=== PATIENT | female | born 2000 | race Caucasian/White ===

== ENCOUNTER 2022-10-03 21:32 | Emergency (ER) | payer OTHER, SELFPAY ==
[2022-10-03 21:44] VITALS: BP 142/108; PULSE 93; RESP 16; TEMP 36.6; O2SAT 99
--- NOTE | 2022-10-03 22:15 | CRLHL7_ITS ---
For Patients: As a result of the Century Cures Act, medical imaging exams and procedure reports are released immediately into your electronic medical record. You may view this report before your referring provider. If you have questions, please contact your health care provider. INDICATION: Low anterior mid chest pain TECHNIQUE: Chest radiograph 1 view COMPARISON: None FINDINGS: The sensitivity and specificity of the exam are moderately limited by the patient`s body habitus. Mediastinum: The mediastinum is normal in appearance. The heart silhouette is normal in size and morphology. Lung: Both lungs are unremarkable in appearance. No sign of pleural effusion seen. No pneumothorax is identified. Bone and Soft tissue: Unremarkable for age. IMPRESSION: 1. No acute cardiopulmonary disease is seen. Dictated by: Javan Llanes MD @ 10/03/2022 23:23:03 (Electronically Signed)
[2022-10-03 22:35] LABS: Basophils Absolute Auto 0.03 K/uL (0.00-0.30); Basophils Percent Auto 0.3 % (0.0-3.0); Eosinophils Absolute Auto 0.08 K/uL (0.00-0.50); Eosinophils Percent Auto 0.7 % (0.0-7.0); Hematocrit 43.1 % (33.0-51.0); Hemoglobin* 14.3 gm/dL (12.0-16.0); Immature Granulocytes Abs Auto 0.03 K/uL (0.00-0.30); Immature Granulocytes Pct Auto 0.3 %; Lymphocytes Absolute Auto 2.51 K/uL (0.90-2.90); Lymphocytes Percent Auto 22.8 % (20-44); Mean Corpuscular HGB Conc 33 gm/dL (32-36); Mean Corpuscular Hemoglobin 30 pg (26-34); Mean Corpuscular Volume 91 fL (80-100); Monocytes Percent Auto 5.8 % (0.0-11.0); Neutrophils Absolute Auto 7.71 K/uL (1.7-7.0); Neutrophils Percent Auto 70.1 % (42.0-72.0); Platelet Count* 262 K/uL (140-440); RDW Coefficient of Variation % 13.2 % (11.5-15.5); Red Blood Count 4.76 m/uL (4.00-5.20)
[2022-10-03 22:39] LABS: Slide Review Reflex No
[2022-10-03 22:51] LABS: Chloride* 109 mmol/L (96-114)
[2022-10-03 22:52] LABS: Albumin* 4.7 g/dL (3.3-5.0); Sodium* 141 mmol/L (135-149)
[2022-10-03 22:54] LABS: Creatinine* 0.6 mg/dL (0.5-1.5); Estimated Glomerular Filt Rate 129 ml/min
[2022-10-03 22:55] LABS: Alanine Aminotransferase* 25 U/L (4-35); Alkaline Phosphatase* 107 U/L (40-150); Aspartate Amino Transferase* 22 U/L (12-35); Bilirubin Direct* 0.2 mg/dL (0.0-0.5); Bilirubin Total* 0.5 mg/dL (0.1-1.5); Blood Urea Nitrogen* 13 mg/dL (5-24); Carbon Dioxide* 22 mmol/L (20-32); Glucose* 86 mg/dL (60-115); Lipase* 77 U/L (23-300); Total Protein* 8.6 g/dL (6.0-8.3)
[2022-10-03 22:56] LABS: Calcium* 9.6 mg/dL (8.4-10.6)
[2022-10-03 22:58] LABS: C Reactive Protein* 0.6 mg/dL (0.5-1.0)
[2022-10-03 23:02] LABS: D Dimer Quantitative* < 0.27 ug/ml (0.00-0.50)
[2022-10-03 23:11] LABS: NT Pro B Type NatriureticPept* < 20 pg/mL; Troponin I* < 0.01 ng/mL (0.01-0.04)
--- NOTE | 2022-10-03 23:32 | ED.CHESTPAIN ---
HPI - Chest Pain General Chief Complaint: Chest Pain Stated Complaint: Chest pain Time Seen by Provider: 10/03/22 21:44 History of Present Illness HPI narrative: 22-year-old young woman presenting to the emergency department complaint of onset of low chest discomfort starting around 36 hours ago in the morning. No trauma. No cough or cold symptoms. Minimal nausea. No treatments. Mildly pleuritic. Seems to feel it straight through to her back. No numbness or tingling into extremities. No weakness. Not lightheaded or dizzy. No palpitations. No fever. No rashes. Related Data Allergies Allergy/AdvReac Type Severity Reaction Status Date / Time azithromycin Allergy Verified 10/03/22 21:50 Review of Systems Status of ROS Reports: 10 or more systems reviewed and unremarkable except as noted in History and below [facility] Social History Smoking Status: Never smoker Do you use any of these nicotine containing products: Vaping Products How often do you have a drink containing alcohol: monthly or less AUDIT-C Alcohol total score: 1 Non-prescribed substance use: denies use service: No Exam Narrative Exam Narrative: Pleasant. NAD. Breathing easily. Skin is warm and dry. No evidence of rash. Lungs are clear. There is no supraclavicular crepitus. Cranial nerves 2-12 look to be intact. Heart with elevated rate in a regular rhythm. She is mildly sore to palpation in the low sternum/xiphoid area. Abdomen is soft nontender otherwise. Back pain is not really reproducible. Well-perfused peripherally. Moving all extremities without difficulty. Const Vital Signs, click to edit/add: Vital Signs - 24 hr 10/03/22 21:44 Temperature 97.9 F Pulse Rate [Left Pulse Oximeter] 93 Respiratory Rate 16 Blood Pressure [Right Upper Arm] 142/108 H Pulse Oximetry 99 Oxygen Delivery Method Room Air Documenting provider has reviewed patient's vital signs: yes Course Vital Signs Vital signs: Initial Vital Signs Temperature 97.9 F 10/03/22 21:44 Temperature Source Temporal Artery Scan 10/03/22 21:44 Pulse Rate 93 10/03/22 21:44 Pulse Rhythm 10/03/22 21:44 Respiratory Rate 16 10/03/22 21:44 Blood Pressure 142/108 H 10/03/22 21:44 Blood Pressure Mean 119 10/03/22 21:44 Blood Pressure Position Sitting 10/03/22 21:44 Pulse Oximetry 99 10/03/22 21:44 Oxygen Delivery Method 10/03/22 21:44 Vital Signs Temperature 97.9 F 10/03/22 21:44 Pulse Rate 93 10/03/22 21:44 Respiratory Rate 16 10/03/22 21:44 Blood Pressure 142/108 H 10/03/22 21:44 Pulse Oximetry 99 10/03/22 21:44 Oxygen Delivery Method 10/03/22 21:44 Temperature 97.9 F 10/03/22 21:44 Pulse Rate 93 10/03/22 21:44 Respiratory Rate 16 10/03/22 21:44 Blood Pressure 142/108 H 10/03/22 21:44 Pulse Oximetry 99 10/03/22 21:44 Oxygen Delivery Method 10/03/22 21:44 MDM - Chest Pain MDM Narrative Medical decision making narrative: Does not feel she needs treatment for pain or nausea. This appears to be chest wall pain but certainly differential can still include pulmonary embolus, pneumothorax, pneumomediastinum, low-lying pneumonia, vascular disruption, costochondritis, chest wall pain. Will be doing screening labs. Chest x-ray reviewed by me looks to be WNL. Normal cardiac silhouette. No airspace disease. No pneumothorax or pneumomediastinum. D-dimer was negative. Appears to be chest wall pain See patient discharge information Lab Data Attestation: I reviewed the patient's lab results. Labs: Lab Results 10/03/22 10/03/22 10/03/22 Range/Units 22:28 22:28 22:28 WBC 11.00 (4.50-11.00) K/uL RBC 4.76 (4.00-5.20) m/uL Hgb 14.3 (12.0-16.0) gm/dL Hct 43.1 (33.0-51.0) % MCV 91 (80-100) fL MCH 30 (26-34) pg MCHC 33 (32-36) gm/dL RDW Coeff of [place] 13.2 (11.5-15.5) % Plt Count 262 (140-440) K/uL Neut % (Auto) 70.1 (42.0-72.0) % Lymph % (Auto) 22.8 (20-44) % Gibson % (Auto) 5.8 (0.0-11.0) % Eos % (Auto) 0.7 (0.0-7.0) % Baso % (Auto) 0.3 (0.0-3.0) % Neut # (Auto) 7.71 H (1.7-7.0) K/uL Lymph # (Auto) 2.51 (0.90-2.90) K/uL Gibson # (Auto) 0.60 (0.00-0.90) K/UL Eos # (Auto) 0.08 (0.00-0.50) K/uL Baso # (Auto) 0.03 (0.00-0.30) K/uL D-Dimer Quant (PE/DVT) < 0.27 (0.00-0.50) ug/ml Sodium 141 (135-149) mmol/L Potassium 4.0 (3.6-5.1) mmol/L Chloride 109 (96-114) mmol/L Carbon Dioxide 22 (20-32) mmol/L BUN 13 (5-24) mg/dL Creatinine 0.6 (0.5-1.5) mg/dL Estimated GFR 129 ml/min Glucose 86 (60-115) mg/dL Calcium 9.6 (8.4-10.6) mg/dL Total Bilirubin 0.5 (0.1-1.5) mg/dL Direct Bilirubin 0.2 (0.0-0.5) mg/dL AST 22 (12-35) U/L ALT 25 (4-35) U/L Alkaline Phosphatase 107 (40-150) U/L Troponin I < 0.01 L (0.01-0.04) ng/mL C-Reactive Protein 0.6 (0.5-1.0) mg/dL NT-Pro-B Natriuret Pep < 20 pg/mL Total Protein 8.6 H (6.0-8.3) g/dL Albumin 4.7 (3.3-5.0) g/dL Lipase 77 (23-300) U/L ECG Data Attestation: I personally reviewed and interpreted this ECG as follows: (Normal sinus rhythm rate of 89) Discharge Plan Discharge Clinical Impression: Chest wall pain Patient Disposition: Home, Self-Care Condition: Stable Additional Instructions: Stay hydrated. Consider taking maybe 600 mg of ibuprofen 2-3 times daily over the next 4-5 days. Alternative would be up to 500 mg of naproxen 2 times daily over the same time period. Might want to take either 1 of these with a little bit of food. This would hopefully settle down some inflammation. You might do the stretches/strengthening exercises on the handout long-term just to balance the torso. Strong back can alleviate chest discomfort as well. Return for increasing/uncontrolled chest pain, increasing shortness of breath, lightheadedness. Follow Up/Referrals: Laina Odom MD [Primary Care Provider] - Stand Alone Forms: [employer] Info Instructions
== END 2022-10-03 23:24 | disposition home or self-care (01) ==
PROVIDERS: Emergency Provider Family Medicine; PCP Family Medicine
DX: R07.89 Other chest pain (principal)
CPT/HCPCS: 36415; 71045; 80048; 80076; 83690; 83880; 84484; 85025; 85379; 86140; 99284

== ENCOUNTER 2023-04-02 11:22 | Emergency (ER) | payer OTHER, SELFPAY ==
[2023-04-02 11:29] VITALS: BP 123/81; RESP 16; TEMP 36.6; O2SAT 99; BMI 29.2
--- NOTE | 2023-04-02 11:47 | CRLHL7_ITS ---
For Patients: As a result of the Century Cures Act, medical imaging exams and procedure reports are released immediately into your electronic medical record. You may view this report before your referring provider. If you have questions, please contact your health care provider. INDICATION: Left lower quadrant pain TECHNIQUE: Ultrasound pelvis transabdominal and transvaginal for better assessment or to better visualize the endometrium. Real-time sonographic images with spectral and color Doppler imaging of the ovaries were obtained. COMPARISON: None FINDINGS: Uterus: 8.2 x 5.4 x 5.5 cm. Heterogeneous echotexture of the uterus. Anterior intramural fibroid measuring 1.8 x 1.7 x 1.5 centimeters. Left intramural fibroid measuring 2.4 x 1.8 x 1.7 centimeters. Endometrium: Endometrial thickness measures 9 mm. No sign of endometrial mass or fluid. Right ovary: 3.6 x 2.4 x 3.2 centimeters. Normal echogenicity and blood flow without focal lesion. Left ovary: 3.8 x 2.1 x 1.7 centimeters. Normal echogenicity and blood flow without focal lesion. Cul-de-sac: Trace free fluid. IMPRESSION: 1. Unremarkable sonographic appearance of the ovaries. 2. Leiomyomatous uterus with trace free fluid in the pelvic cul-de-sac. Dictated by Armando Marshall MD @ 04/02/2023 1:30:28 PM (Electronically Signed)
--- NOTE | 2023-04-02 12:03 | ED_ITS ---
HPI - General Adult General Chief complaint: Abdominal Pain Stated complaint: left side abdominal pain,vomiting Time Seen by Provider: 04/02/23 11:38 Source: patient Mode of arrival: ambulatory Limitations: no limitations History of Present Illness HPI narrative: 22-year-old female coming in today complaining of left lower quadrant pain going on for a couple of weeks. LMP was March 15, pain started about 1 week after her menses. Pain is constant, nothing really makes it worse. Heat makes it better. Patient is concerned because this morning she woke up and vomited. She states that she has had a large ovarian cyst on the right side that required surgery in the past as it was 13 cm. She states that the pain feels very similar to that including vomiting and so she presents for evaluation today. She denies any fevers or chills. No pain with urination. No increased urinary frequency or urgency. She has regular, daily bowel movements. No blood in her urine or stools. No changes in her appetite. She is sexually active and is not on control. Related Data Home Medications Medication Instructions Recorded Confirmed No Known Home Medications 04/02/23 04/02/23 Allergies Allergy/AdvReac Type Severity Reaction Status Date / Time azithromycin Allergy Verified 10/03/22 21:50 Review of Systems Status of ROS: Reports: 10 or more systems reviewed and unremarkable except as noted in History and below [facility] Social History Smoking Status: Current some day smoker Do you use any of these nicotine containing products: Vaping Products Second hand tobacco smoke exposure: No How often do you have a drink containing alcohol: monthly or less How many standard drinks containing alcohol do you have on a typical day: 1 or 2 How often do you have six or more drinks on one occasion: Never AUDIT-C Alcohol total score: 1 Non-prescribed substance use: denies use service: No Exam Narrative: Exam Narrative: Well-nourished well-developed patient in no acute distress. Alert and oriented. Answers questions appropriately. Mood and affect are appropriate. Thoughts are goal oriented and rational. No tangential or magical thinking noted. Patient speaks in full sentences without needing to catch their breath. HEENT: Normocephalic atraumatic. Pupils are equally round reactive to light. Extraocular muscles are intact. Conjunctivae are moist without any icterus noted. Moist mucous membranes. Cardiovascular: Heart is regular rate and rhythm S1 and S2 are present without any murmurs. Lungs: Clear to auscultation bilaterally no wheezes rhonchi or rales are appreciated. Patient takes deep breaths without any discomfort. Abdomen: Soft and nontender nondistended with normal bowel sounds. No guarding or rebound. No masses or organomegaly appreciated. Minimal discomfort in the left pelvic region. Extremities: Bilateral lower extremities are without edema. Skin: Well perfused without any obvious rashes. Const: Vital Signs, click to edit/add: Vital Signs - 24 hr 04/02/23 11:29 04/02/23 13:04 Temperature 98 F Pulse Rate [Pulse Oximeter] 85 Respiratory Rate 16 16 Blood Pressure [Le ft Upper Arm] 123/81 121/82 Pulse Oximetry 99 99 Oxygen Delivery Me thod Room Air Room Air Course Course Hospital Course: Urine test and UA were ordered: UA unremarkable, negative test. Pelvic ultrasound ordered: Unremarkable. Vital Signs Vital signs: Initial Vital Signs Temperature 98 F 04/02/23 11:29 Temperature Source Temporal Artery Scan 04/02/23 11:29 Pulse Rhythm Regular 04/02/23 11:29 Respiratory Rate 16 04/02/23 11:29 Blood Pressure 123/81 04/02/23 11:29 Blood Pressure Mean 95 04/02/23 11:29 Blood Pressure Position Sitting 04/02/23 11:29 Pulse Oximetry 99 04/02/23 11:29 Oxygen Delivery Method Room Air 04/02/23 11:29 Vital Signs Temperature 98 F 04/02/23 11:29 Respiratory Rate 16 04/02/23 11:29 Blood Pressure 123/81 04/02/23 11:29 Pulse Oximetry 99 04/02/23 11:29 Oxygen Delivery Method Room Air 04/02/23 11:29 Temperature 98 F 04/02/23 11:29 Pulse Rate 85 04/02/23 13:04 Respiratory Rate 16 04/02/23 13:04 Blood Pressure 121/82 04/02/23 13:04 Pulse Oximetry 99 04/02/23 13:04 Oxygen Delivery Method Room Air 04/02/23 13:04 Medical Decision Making Lab Data Labs: Lab Results 04/02/23 Range/Units 12:06 Urine Color Yellow (Yellow) Urine Appearance Clear (Clear) Urine pH 7.5 (5.0-8.5) Ur Specific [place] 1.020 (1.000-1.030) Urine Protein Negative (Negative) Urine Glucose (UA) Negative (Negative) Urine Ketones Negative (Negative) Urine Blood Negative (Negative) Urine Nitrite Negative (Negative) Urine Bilirubin Negative (Negative) Urine Urobilinogen 0.2 (0.2-1.0) Ur Leukocyte Esterase Trace A (Negative) Urine RBC 0-2 (0-2) Urine WBC 0-2 (0-5) Ur Squamous Epith Cells Moderate A (None-Few) Urine Bacteria None (None) Urine HCG, Qual Negative (Negative) Imaging Data Pelvic ultrasound: Attestation: I have reviewed the pertinent imaging results. Radiologist's impression: Ultrasound pelvis transabdominal and transvaginal for better assessment or to better visualize the endometrium. Real-time sonographic images with spectral and color Doppler imaging of the ovaries were obtained. COMPARISON: None FINDINGS: Uterus: 8.2 x 5.4 x 5.5 cm. Heterogeneous echotexture of the uterus. Anterior intramural fibroid measuring 1.8 x 1.7 x 1.5 centimeters. Left intramural fibroid measuring 2.4 x 1.8 x 1.7 centimeters. Endometrium: Endometrial thickness measures 9 mm. No sign of endometrial mass or fluid. Right ovary: 3.6 x 2.4 x 3.2 centimeters. Normal echogenicity and blood flow without focal lesion. Left ovary: 3.8 x 2.1 x 1.7 centimeters. Normal echogenicity and blood flow without focal lesion. Cul-de-sac: Trace free fluid. IMPRESSION: 1. Unremarkable sonographic appearance of the ovaries. 2. Leiomyomatous uterus with trace free fluid in the pelvic cul-de-sac. Discharge Plan Discharge Clinical Impression: Pelvic pain Patient Disposition: Home, Self-Care Condition: Stable Additional Instructions: Follow-up with your OBGYN as needed. Prescriptions: No Action No Known Home Medications Follow Up/Referrals: Laina Odom MD [Primary Care Provider] - Stand Alone Forms: [facility] Directions Info Instructions
[2023-04-02 12:22] LABS: Appearance Urine Clear (Clear); Bilirubin Urine Negative (Negative); Blood Urine Negative (Negative); Color Urine Yellow (Yellow); Glucose Urine Negative (Negative); Ketones Urine Negative (Negative); Leukocyte Esterase Urine Trace (Negative); Nitrite Urine Negative (Negative); Protein Urine Negative (Negative); Urobilinogen Urine 0.2 (0.2-1.0); pH Urine 7.5 (5.0-8.5)
[2023-04-02 12:24] LABS: Ur HCG Qualitative* Negative (Negative)
[2023-04-02 12:32] LABS: RBC Urine 0-2 (0-2); Squamous Epithelial Cell Urine Moderate (None-Few); WBC Urine 0-2 (0-5)
[2023-04-02 13:04] VITALS: BP 121/82; PULSE 85; RESP 16; O2SAT 99
== END 2023-04-02 13:43 | disposition home or self-care (01) ==
PROVIDERS: Emergency Provider Family Medicine; PCP Family Medicine
DX: R10.2 Pelvic and perineal pain (principal)
CPT/HCPCS: 76830; 81001; 81025; 87086; 93976; 99283; 99284